=== PATIENT | female | born 1990 ===

== ENCOUNTER 2017-05-22 17:18 | Emergency (ER) | payer OTHER ==
--- NOTE | 2017-05-22 17:37 | UC ---
Dental HPI - HPI Summary HPI Summary: Pt presents with dental pain. She tells me that she is currently 18 weeks and that she has upper wisdom teeth growing sideways. The wisdom tooth in her left upper mouth has fractured the tooth in front of it. This happened months ago, but started having pain recently. She saw her dentist, who told her that there is nothing they can do due to the . She has been tolerating the pain with tylenol and oragel, but recently has become inflamed and "throbbing". She thinks it is infected. She is still able to eat and drink. Denies fever, chills. - History of Current Complaint Stated Complaint: DENTAL Time Seen by Provider: 05/22/17 17:35 Hx Obtained From: Patient Onset/Duration: Gradual Onset Severity: Severe Pain Intensity: 8 Pain Scale Used: 0-10 Numeric - Allergies/Home Medications Allergies/Adverse Reactions: Allergies Allergy/AdvReac Type Severity Reaction Status Date / Time latex Allergy Hives Verified 05/22/17 17:58 red dye Allergy Swelling Verified 05/22/17 17:58 Of Face,Lips,& Throat Home Medications: Home Medications Acetaminophen TAB* [Tylenol TAB*] 650 mg PO Q4H PRN 05/22/17 [History Confirmed 05/22/17] 95/Iron Fum/Folic/Dha [ Multivitamin + D] 1 mis PO DAILY [History Confirmed 05/22/17] PMH/Surg Hx/FS Hx/Imm Hx - Additional Past Medical History Additional PMH: None Previously Healthy: Yes - Family History Known Family History: Positive: Unknown - Social History Occupation: Employed Full-time Lives: With Family Alcohol Use: None Substance Use Type: None Smoking Status (MU): Light Every Day Tobacco Smoker Review of Systems Constitutional: Negative Skin: Negative Eyes: Negative ENT: Dental Pain Respiratory: Negative Cardiovascular: Negative Gastrointestinal: Negative Neurovascular: Negative Musculoskeletal: Negative Neurological: Negative Psychological: Negative All Other Systems Reviewed And Are Negative: Yes Physical Exam Triage Information Reviewed: Yes Appearance: Well-Appearing, No Pain Distress, Well-Nourished Vital Signs Reviewed: Yes ENT: Positive: Pharynx normal, Dental tenderness - Tooth 15, Uvula midline. Negative: Pharyngeal erythema Dental: Positive: Percussion Tenderness @ - Tooth 15, Dental Fracture @ - Tooth 15, Cellulitis @ - Tooth 15. Negative: Abscess @, Bleeding Neck: Positive: Supple, Nontender, No Lymphadenopathy Respiratory: Positive: Lungs clear, Normal breath sounds, No respiratory distress, No accessory muscle use Cardiovascular: Positive: RRR, No Murmur, Pulses Normal Neurological: Positive: Alert Psychological: Positive: Age Appropriate Behavior Skin: Negative: rashes Dental Complaint Course/Dx - Course Course Of Treatment: Dental abscess Tooth 15 - given her reaction to red dye, will try PCN VK. - Differential Dx/Diagnosis Provider Diagnoses: dental abscess Tooth 15 Discharge - Sign-Out/Discharge Documenting (check all that apply): Discharge - Discharge Plan Condition: Stable Disposition: HOME Prescriptions: Penicillin VK TAB* [Penicillin VK 250 mg Tab*] 250 mg PO QID #28 tab Patient Education Materials: Toothache (ED) Referrals: JAY Coates [Primary Care Provider] - Additional Instructions: If you develop a fever, shortness of breath, chest pain, new or worsening symptoms - please call your PCP or go to the ED. - Billing Disposition and Condition Condition: STABLE Disposition: HOME
[2017-05-22 17:51] VITALS: BP 102/71
== END 2017-05-22 18:23 | disposition home or self-care (01) ==
LOC: UCCORT 17:18
DX: K04.7 Periapical abscess without sinus (principal); F17.200 Nicotine dependence, unspecified, uncomplicated
CPT/HCPCS: 99212; G0463